=== PATIENT | male | born 1960 | race Caucasian/White ===

== ENCOUNTER 2022-11-16 07:30 | Inpatient (IN) | payer BC ==
[~2022-11-16] VITALS: Ht 180.3 cm; Wt 103.0 kg
[~2022-11-16 07:30] MED LIST: CENTRUM SILVER1 EAC2; EZALLOR SPRINKLE5 MG PO
[2022-11-16] MEDS ORDERED: OMEP20ER PO (12:14)
[2022-11-16] MEDS ORDERED: IBUP600 PO (12:14)
[2022-11-18] VITALS (9 sets, daily range): BP systolic 118–143; BP diastolic 77–99
--- NOTE | 2022-11-18 10:13 | NUR ---
DISCHARGE NOTE PT A&OX4, VSS, BREATHING RA, NO COMPLAINTS. PT TOLERATING PO FLUIDS AND FOOD. Discharge instructions reviewed with patient. Patient verbalizes understanding. Copy given to patient to take home. Dressing to procedure site clean, dry, intact with no visible drainage, swelling, erythema or bruising noted. Discharged via wheelchair to private car for ride home.ALL BELONGINGS SENT C PATIENT.
== END 2022-11-19 06:56 | disposition home or self-care (01) | DRG 331 ==
LOC: SURS 11-18 06:09 → PRE IP 11-18 07:30 → SURS 11-18 14:01
PROVIDERS: ADMIT Surgery
PROC: 0DBH4ZZ Excision of Cecum, Percutaneous Endoscopic Approach (ICD-10-PCS; principal; 2022-11-18 07:30)
DX: D12.0 Benign neoplasm of cecum (principal); F17.210 Nicotine dependence, cigarettes, uncomplicated; F10.90 Alcohol use, unspecified, uncomplicated; E78.5 Hyperlipidemia, unspecified; I10 Essential (primary) hypertension; Z90.89 Acquired absence of other organs; Z98.890 Other specified postprocedural states; Z79.899 Other long term (current) drug therapy
CPT/HCPCS: 88304; A9270; J0690; J1100; J2250; J2405; J2704; J3010; J7120